=== PATIENT | male | born 1960 | race Caucasian/White ===

== ENCOUNTER → 2024-07-08 09:59 | Outpatient (REF) | payer OTHER, SELFPAY | LOC: RCS 09:59 | PROVIDERS: ATTENDING PHYSICIAN Internal Medicine Cardiovascular Disease; FAMILY PHYSICIAN Family Medicine | DX: I44.1 Atrioventricular block, second degree (principal); I34.0 Nonrheumatic mitral (valve) insufficiency; I36.1 Nonrheumatic tricuspid (valve) insufficiency; I10 Essential (primary) hypertension; Z95.0 Presence of cardiac pacemaker | CPT/HCPCS: 93306; Q9950 ==

== ENCOUNTER → 2025-01-13 06:50 | Outpatient (REF) | payer OTHER, SELFPAY | LOC: RAD 06:50 | PROVIDERS: ATTENDING PHYSICIAN Internal Medicine Cardiovascular Disease; FAMILY PHYSICIAN Family Medicine | DX: N18.1 Chronic kidney disease, stage 1 (principal) | CPT/HCPCS: 76770 ==

== ENCOUNTER → 2025-04-04 08:01 | Outpatient (REF) | payer OTHER, SELFPAY ==
--- NOTE | 2025-04-04 08:56 | CARDSERVLU ---
Echocardiogram with Lumason completed after protocol screening completed. Allergies verified.
Patent IV site: _left AC____
IV site flushed with 0.9% NaCl pre and post administration.
Diluted bolus method utilized to enhance visualization of ventricular graham.
Total volume given: _4.0___ mL
Patient tolerated all procedures well without complications.
== END ==
LOC: RCS 08:01
PROVIDERS: ATTENDING PHYSICIAN Internal Medicine Cardiovascular Disease; FAMILY PHYSICIAN Family Medicine
DX: I42.8 Other cardiomyopathies (principal)
CPT/HCPCS: 93306; Q9950

== ENCOUNTER → 2025-07-07 10:04 | Outpatient (REF) | payer OTHER, SELFPAY | LOC: RCS 10:04 | PROVIDERS: ATTENDING PHYSICIAN Internal Medicine Cardiovascular Disease; FAMILY PHYSICIAN Family Medicine | DX: Z95.0 Presence of cardiac pacemaker (principal); I44.1 Atrioventricular block, second degree; I10 Essential (primary) hypertension; I34.0 Nonrheumatic mitral (valve) insufficiency; I45.2 Bifascicular block | CPT/HCPCS: 93308; 93321; 93325; Q9950 ==